=== PATIENT | female | born 1965 ===

== ENCOUNTER → 2017-08-22 | Outpatient (CLI) | payer BC ==
[2017-08-22 14:17] LABS: BASO % 0.5 %; BASO ABS # 0.07 K/uL (0-0.2); COMPLETE YES; EOS % 1.2 %; HEMATOCRIT 47.4 % (37-47); IG% 0.6 %; LYMPH % 23.6 %; LYMPH ABS # 3.25 K/uL (1.2-3.4); MEAN CELL VOLUME 90.5 fL (80-100); MEAN CORPUSCULAR HEMOGLOBIN 30.7 pg (25-34); MEAN PLATELET VOLUME 11.7 fL (7.4-10.4); MONO % 11.6 %; NEUT % 62.5 %; PLATELET COUNT 269 K/uL (130-400); RED BLOOD COUNT 5.24 M/uL (4.2-5.4); WHITE BLOOD COUNT 13.76 K/uL (4.8-10.8)
[2017-08-22 15:20] LABS: ALT/SGPT 31 U/L (12-78); BLOOD UREA NITROGEN 12 mg/dl (7-18); BUN/CREATININE RATIO 21.1 (10-20); CALCIUM 9.4 mg/dl (8.5-10.1); CARBON DIOXIDE 22 mmol/L (21-32); CHLORIDE 109 mmol/L (98-107); CHOLESTEROL 327 mg/dl (0-200); CREATININE 0.58 mg/dl (0.60-1.20); GLUCOSE 108 mg/dl (70-99); POTASSIUM 4.3 mmol/L (3.5-5.1); SODIUM 140 mmol/L (136-145); TRIGLYCERIDES 155 mg/dl (0-150); VERY LOW DENSITY LIPOPROT CALC 31 mg/dl
[2017-08-22 15:23] LABS: ALKALINE PHOSPHATASE 142 U/L (45-117); AST/SGOT 19 U/L (15-37); CHOLESTEROL/HDL RATIO 8.2; HDL CHOLESTEROL 40 mg/dl; LDL CHOLESTEROL CALCULATED 256 mg/dl
== END | disposition home or self-care (01) ==
LOC: C.LABSPEC 13:26
PROVIDERS: ATTEND Family Medicine
DX: E78.2 Mixed hyperlipidemia (principal)

== ENCOUNTER → 2018-06-14 | Outpatient (CLI) | payer BC | END | disposition home or self-care (01) | LOC: C.LABSPEC 18:02 | PROVIDERS: ATTEND Family Medicine | DX: S70.261A Insect bite (nonvenomous), right hip, initial encounter (principal); X58.XXXA Exposure to other specified factors, initial encounter ==